=== PATIENT | female | born 1990 | race Caucasian/White ===

== ENCOUNTER 2021-11-27 17:39 | Outpatient (CLI) | payer OTHER, SELFPAY ==
[2021-11-27 21:00] LABS: Hepatitis B Surface Antigen* Negative (Negative)
[2021-11-27 21:10] LABS: HIV 1/2/P24 Combo Screen* Negative (Negative)
[2021-11-27 21:17] LABS: Hepatitis C Virus Antibody* Negative (Negative)
[2021-11-27 21:37] LABS: Chlamydia DNA Amplified* NOT DETECTED (No Detected); GC DNA Amplified* NOT DETECTED (No Detected)
[2021-11-29 20:38] LABS: Rapid Plasma Reagin (RPR) Non Reactive (Non Reactive)
== END 2021-11-27 17:40 | disposition home or self-care (01) ==
PROVIDERS: Visit Provider Physician Assistant
DX: Z34.91 Encounter for supervision of normal pregnancy, unspecified, first trimester (principal); Z3A.11 11 weeks gestation of pregnancy
CPT/HCPCS: 76801; 86592; 86703; 86762; 86787; 86803; 86850; 86900; 86901; 87086; 87340; 87491; 87591

== ENCOUNTER 2021-12-25 17:21 | Outpatient (CLI) | payer OTHER, SELFPAY ==
[2021-12-25 20:51] LABS: Alanine Aminotransferase* 12 U/L (4-35); Aspartate Amino Transferase* 20 U/L (12-35); Creatinine* 0.6 mg/dL (0.5-1.5); Estimated Glomerular Filt Rate 123 ml/min
[2021-12-25 20:52] LABS: Blood Urea Nitrogen* 14 mg/dL (5-24); Uric Acid* 2.9 mg/dL (2.2-8.4)
[2021-12-25 20:53] LABS: Total Protein Urine < 5 mg/dL
== END 2021-12-25 17:22 | disposition home or self-care (01) ==
PROVIDERS: Visit Provider Physician Assistant
DX: Z34.92 Encounter for supervision of normal pregnancy, unspecified, second trimester (principal); Z3A.15 15 weeks gestation of pregnancy
CPT/HCPCS: 82565; 82570; 84156; 84450; 84460; 84520; 84550

== ENCOUNTER 2022-01-22 15:18 | Outpatient (CLI) | payer OTHER, SELFPAY ==
--- NOTE | 2022-01-22 15:30 | CRLHL7_ITS ---
For Patients: As a result of the Century Cures Act, medical imaging exams and procedure reports are released immediately into your electronic medical record. You may view this report before your referring provider. If you have questions, please contact your health care provider. INDICATION: Evaluate anatomy. COMPARISON: None. TECHNIQUE: Real time bower scale imaging of the fetus was performed. FINDINGS: Sonographic imaging demonstrates a single living intrauterine gestation. Fetus demonstrates a regular cardiac rate of 145 beats per minute. Fetus has a vertex orientation and longitudinal lie. The placenta lies posteriorly without evidence of placenta previa. Amniotic fluid volume appears normal. Single deepest vertical pocket: 4.2 cm. The cervix is closed and measures 3.3 cm in length. The composite ultrasound gestational age is calculated at 20 weeks 6 days with an estimated sonographic due date of June 05, 2022. The estimated weight is 402 grams which lies at greater than the 97th percentile. The following biometric measurements were obtained: Biparietal diameter: 5.0 cm/21 weeks 1 day 96% Head circumference: 17.9 cm/20 weeks 2 days 78% Abdominal circumference: 16.2 cm/21 weeks 2 days 91% Femur length: 3.5 cm/21 weeks 1 day 90% The HC/AC ratio measures: 1.1 range (1.06-1.25) On anatomic survey, there is a normal appearance of the cerebral ventricles, cisterna magna and cerebellum. The nose, lips, and facial profile appear normal. The cervical, thoracic and lumbar spine are well visualized and appear normal. There is a normal four-chamber heart view and the left and right ventricular outflow tracts appear normal. diaphragm, stomach, kidneys and bladder appear normal. There is a normal three-vessel cord and cord insertion site. The four extremities appear normal. IMPRESSION: Normal OB ultrasound exam with concordance of clinical and sonographic dating. No intrinsic abnormalities noted on anatomic survey. Dictated by Reymundo Cordero MD @ 01/23/2022 8:46:38 AM (Electronically Signed)
== END 2022-01-22 15:19 | disposition home or self-care (01) ==
LOC: US 15:19
PROVIDERS: Visit Provider Physician Assistant
DX: Z34.92 Encounter for supervision of normal pregnancy, unspecified, second trimester (principal); Z3A.20 20 weeks gestation of pregnancy
CPT/HCPCS: 76805

== ENCOUNTER 2022-03-28 15:09 | Outpatient (CLI) | payer OTHER, SELFPAY ==
[2022-03-31 11:25] LABS: Rapid Plasma Reagin (RPR) Non Reactive (Non Reactive)
== END 2022-03-28 15:10 | disposition home or self-care (01) ==
LOC: NFLDREF 15:09
PROVIDERS: Registered Nurse; Visit Provider Physician Assistant
DX: Z34.93 Encounter for supervision of normal pregnancy, unspecified, third trimester (principal); Z3A.28 28 weeks gestation of pregnancy
CPT/HCPCS: 86592

== ENCOUNTER 2022-04-23 16:54 | Outpatient (CLI) | payer OTHER, SELFPAY ==
--- NOTE | 2022-04-23 17:00 | CRLHL7_ITS ---
For Patients: As a result of the Cures Act, medical imaging exams and procedure reports are released immediately into your electronic medical record. You may view this report before your referring provider. If you have questions, please contact your health care provider. INDICATION: Assess growth. TECHNIQUE: Transabdominal obstetrical ultrasound. COMPARISON: None. FINDINGS: Single living intrauterine in vertex presentation with the spine toward the maternal left side. Posterior placenta. heart rate 137 beats per minute. Normal amniotic fluid. Single deepest pocket measurement of 5.7 cm. Biparietal diameter 8.73 cm, 35 weeks 2 days, 97th percentile. Head circumference 32.29 cm, 36 weeks 3 days, 96th percentile. Abdominal circumference 29.54 cm, 33 weeks 4 days, 77th percentile. Femur length 6.78 cm, 34 weeks 6 days, 90th percentile. Composite calculated ultrasound age 35 weeks 0 days with a sonographic due date of May 28, 2022. This is advanced by at least 2-1/2 weeks when correlated with the age based on the last menstrual period provided. Estimated weight 2414 g which lies at the 98th percentile. The head to abdominal circumference ratio is normal at 1.09. The femur length to abdominal circumference ratio is normal at 22.96. IMPRESSION: Single living intrauterine in vertex presentation. Composite calculated ultrasound age 35 weeks 0 days with a sonographic due date of May 28, 2022. Estimated weight lies at the 90th percentile. Dictated by Reymundo Cordero MD @ 04/24/2022 10:23:21 AM (Electronically Signed)
== END 2022-04-23 16:55 | disposition home or self-care (01) ==
LOC: US 16:55
PROVIDERS: Visit Provider Physician Assistant
DX: Z34.93 Encounter for supervision of normal pregnancy, unspecified, third trimester (principal); Z3A.35 35 weeks gestation of pregnancy
CPT/HCPCS: 76816

== ENCOUNTER 2022-05-20 14:54 | Outpatient (CLI) | payer OTHER, SELFPAY ==
--- NOTE | 2022-05-20 15:00 | CRLHL7_ITS ---
For Patients: As a result of the Century Cures Act, medical imaging exams and procedure reports are released immediately into your electronic medical record. You may view this report before your referring provider. If you have questions, please contact your health care provider. OB ULTRASOUND, 05/20/2022 LYDIA by LMP: 06/14/2022. GA: 36 w, 3 d. Single. INDICATION: Growth. CERVIX: Not visualized. POSITIONING: Vertex. AMNIOTIC FLUID: 6.3 cm. PLACENTA: Technique: Transabdominal. PLACENTA POSITION: Anterior. DOPPLER: heart rate: 137 bpm. Biometry: BPD: 9.4 cm. 38 w, 1 d, 94 percent. HC: 34.9 cm. 40 w, 4 d, 95 percent. AC: 35.5 cm. 39 w, 3 d, >97 percent. FL: 7.7 cm. 39 w, 1 d, 96 percent. FL/AC ratio: 21.6 percent. HC/AC ratio: 0.98. EFW: 3741 g. Weight: 8 lbs, 4 oz. age by this US: 39 w, 2 d. LYDIA by this US: 05/25/2022. Percentile by LYDIA: >97 percent. IMPRESSION: Single live intrauterine gestation at 39 weeks 2 days. LYDIA of 05/25/2022. Sandra Liang M.D. Diagnostic/Breast Radiologist [email or web address] EMERSON/[email or web address]/Dictated by: Sandra Liang MD @ 05/20/2022 4:04:00 PM (Electronically Signed)
== END 2022-05-20 14:55 | disposition home or self-care (01) ==
LOC: US 14:55
PROVIDERS: Visit Provider Physician Assistant
DX: Z34.93 Encounter for supervision of normal pregnancy, unspecified, third trimester (principal); Z3A.36 36 weeks gestation of pregnancy
CPT/HCPCS: 76816; 87081; 87653

== ENCOUNTER 2022-06-03 17:21 | Inpatient (IN) | payer OTHER, SELFPAY ==
[2022-06-03] VITALS (19 sets, daily range): BP systolic 100–133; BP diastolic 61–82; PULSE 53–88; RESP 16; TEMP 36.8–37.3; O2SAT 97–100; BMI 25.6
[2022-06-03 17:08] LABS: Amnisure Rom* POSITIVE
[2022-06-03] MEDS: LACTATED RINGERS 1000 ML 1,000 ML 925 ML IV (17:35)
[2022-06-03 17:39] LABS: Hemoglobin* 9.6 gm/dL (12.0-16.0)
--- NOTE | 2022-06-03 18:06 | W.PM.LDBA ---
Subjective History of Present Illness Time Seen by Provider: 17:30 Date Seen: 06/03/22 Narrative: She is a 32 year old at 38w3d. Patient is being admitted to Labor and Delivery for SROM at around noon today. Amnisure on admission positive. She is having regular contractions q2-3 minutes on toco but patient denies feeling any contractions. Her full history and physical was dictated by Dr. Kline on 05/20/2022. Please see this for details. OB - Problem Based A/P Additional Plan (1) SROM (spontaneous rupture of membranes): Status: Acute (2) Previous delivery affecting : Status: Acute Plan - Patient continues to desire repeat delivery. - CS Consent The patient was consented for section and blood. She understands that the three main categories of risk include bleeding, infection, and damage to surrounding structures. Regarding infection, she understands that we will be delivering appropriate antibiotics, however that the risk of infection following section still is approximately 5%. She understands that though the risk is very low that there is always a risk of damage to the bladder, uterus, ovaries, fallopian tubes, bowels, ureters, or even the fetus. There is an increased risk as she's had abdominal surgery prior. She understands that most injuries can be addressed at the time of surgery, however, such an injury may require additional surgeries to fix. Lastly, she understands that a section carries a risk of bleeding, and that while this bleeding can be addressed with multiple medical and surgical modalities, that there is the possibility of needing a blood transfusion. Unfortanately, her last delivery was complicated by acute blood loss anemia require two units of pRBC. She reports she would accept a blood transfusion understanding the risks of a 1/200,000 risk of Hepatitis and 1/2,000,000 risk of HIV as well as the risk of having an allergic reaction to the blood products. She further understands that this reaction is typically mild, however can be severe including respiratory distress and necessitating ICU-level care. Lastly, she understands that a section does increase risks for future pregnancies and deliveries including, but not limited to, the risk of uterine rupture or placenta accreta. - Hgb 9.6, plt 223 - OR team notified Delivery/Labor/Induction Plan Plan: Section OB Exam Physical Exam Vital signs: Temp Pulse Resp BP Pulse Ox 98.9 F 85 16 117/73 97 06/03/22 16:51 06/03/22 16:51 06/03/22 16:51 06/03/22 16:51 06/03/22 16:52 Narrative: Physical exam: General: Comfortable and in no acute distress Psych: Alert and oriented x3, full affect HEENT: Normocephalic, atraumatic Lungs: Unlabored breathing Neuro: No focal deficit. Mentating appropriately Pelvic exam: 3/50/-3 per RN cervical exam. Will reassess in OR
[2022-06-03] MEDS: CEFAZOLIN 2 GM INJ IVP (18:30)
[2022-06-03 18:31] LABS: Basophils Absolute Auto 0.02 K/uL (0.00-0.30); Basophils Percent Auto 0.3 % (0.0-3.0); Eosinophils Absolute Auto 0.04 K/uL (0.00-0.50); Eosinophils Percent Auto 0.5 % (0.0-7.0); Hematocrit 30.2 % (33.0-51.0); Hemoglobin* 9.6 gm/dL (12.0-16.0); Immature Granulocytes Abs Auto 0.01 K/uL (0.00-0.30); Immature Granulocytes Pct Auto 0.1 %; Lymphocytes Absolute Auto 1.54 K/uL (0.90-2.90); Mean Corpuscular HGB Conc 32 gm/dL (32-36); Mean Corpuscular Hemoglobin 26 pg (26-34); Mean Corpuscular Volume 81 fL (80-100); Monocytes Percent Auto 6.2 % (0.0-11.0); Neutrophils Percent Auto 72.9 % (42.0-72.0); Platelet Count* 252 K/uL (140-440); RDW Coefficient of Variation % 12.5 % (11.5-15.5); Red Blood Count 3.73 m/uL (4.00-5.20); Slide Review Reflex No
[2022-06-03] MEDS: AZITHROMYCIN 500 MG in 0.9 % SODIUM CHLORIDE 250 ml 250 ML 255 MG IVPB (18:35)
[2022-06-03 19:08] LABS: SARS PCR* Negative SARS-CoV-2 (Negative)
--- NOTE | 2022-06-03 19:39 | PM.OBPRCCS ---
Procedure Pre-op/Post-op diagnoses: Pre-Op/Post-Op Diagnoses Operation Date: 06/03/22 19:30 <No data on this case meets the specified criteria> Procedure Done: Global Procedure Details: Procedures Operation Date: 06/03/22 19:30 Actual Procedure Side Surgeon r Section Binta Moy MD Disposition: floor Anesthesia type: Spinal Narrative: DELIVERY BY SECTION Date of Service: 06/03/2022 Delivery time: 1852 Summary: Admitted for repeat delivery at 38 weeks 3 days due to SROM, Repeat Lower uterine transverse section, Pfannenstiel, Closed with sutures, QBL 592 cc, Findings: Dense adhesions of the anterior rectus fascia to the rectus abdominis, minimal adhesions intraabdominally, bladder low and away from previous low uterine segment scar. Normal uterus, bilateral ovaries and tubes Complications: Dense adhesion and uterine atony 8/9 Weight 3945g. Primary Indication: SROM in setting of previous delivery Declined TOLAC and desire repeat delivery Procedures: Repeat Lower uterine transverse section Specimens Removed: Placenta Surgeon: Binta Moy MD Pillowcase Folder Surgeon: None Anesthesia: Spinal and TAP block Report: Prophylactic antibiotic, 2 g of Ancef and 500 mg of azithromycin was given before patient was taken to OR. After arrival to the operating room patient was placed in the supine position with left lateral tilt after administration of spinal anesthesia. Laparotomy A pfannenstiel incision was made through the anterior abdominal wall with #10 scalpel approximately 2 cm above the pubic symphysis. The incision was extended sharply with the #10 scalpel through the subcutaneous tissue to the level of fascia. The fascia was entered sharply with a #10 scalpel (Pfannenstiel) in the midline and extended in semi-elliptical fashion with Hernandez scissor. The underlying muscles were dissected off the overlying fascia by grasping the superior aspect of fascia with two magali clamps and blunt dissection was used along the midline. Lysis of dense adhesion performed and the fascia was further from rectus muscle with Hernandez scissor and/or cautery. In similar fashion, the lower aspect of fascia was also grasped with two Magali clamps and both blunt and sharp dissection was used to separate fascia from rectus muscle. The rectus muscles were in the midline bluntly with mirna and Metzenbaum. The peritoneum was then entered sharply with Metzenbaum. The peritoneal incision was then extended superiorly and inferiorly under direct visualization with care being taken to avoid bladder and bowel with cautery. Filmy intraabdominal adhesions noted. The peritoneal incision was enlarged with bovie to appropriate size. Rex retractor was inserted into the abdomen. Delivery A bladder flap was not developed as the bladder was low and far away from the uterine incision site. A low transverse hysterotomy was made then with #10 scalpel and extended laterally and cephalad with fingers in a low transverse fashion with Manu Chong technique with care being taken to avoid injury to the fetus. The amniotic cavity (membrane) was then entered with spontaneous rupture of membrane, and the amniotic fluid was noted to be clear, fetus was delivered cephalic with the assistance of constant fundal pressure. Nuchal cord x 2 noted with the delivery of the head and this was reduced at the hysterotomy. With delivery of the baby, no extension was noted. Placenta was delivered spontaneously with steady traction on cord and manual separation of placenta from uterine wall. Closure Uterine cavity was cleaned after placental delivery with lap sponge x 2. The hysterotomy was closed in one layer with stitches using 0 vicryl with continuous locking stitches. One figure of eight was placed at the midline of the uterine incision. Hemostasis was achieved as needed with electrocautery. The ovaries/tubes/uterine surface were evaluated. They were found to be normal. Rex retractor was removed. Fascia was closed with running stitches using 0 PDS. Hemostasis was checked for and found to be adequate. The skin was closed with 4-0 Monocryl subcuticular sutures . The incision was cleaned and covered with a Exofin and Mepilex dressing. Sponge, lap and needle counts were correct x 2. Intraoperative Complications: Dense adhesion and uterine atony Uterotonics: 40 u of pitocin, 0.2 mg of Methergine x1, and TXA QBL: 592 cc Disposition: The patient tolerated the procedure well. She was recovered in Obstetric PACU for close monitoring in stable condition, with a contracted uterus and normal transvaginal bleeding. The was sent to mother?s bedside/PACU. The placenta was not sent to pathology. Infant total score - 1 minute: 8 total score - 5 minute: 9
--- NOTE | 2022-06-03 20:06 | W.PM.NB ---
Nerve Block Nerve Block Time Seen by Provider: 19:40 Date Seen: 06/03/22 Type of block requested by surgeon for post-operative analgesia: TAP Side: bilateral Time out performed: Yes Verification of patient name: Yes Verification of date of : Yes Site marking: not applicable Name of person performing procedure: anca Continuous monitoring Was continuous monitoring of O2 sat, B/P, satellite project site monitor, recorded every 15 minutes?: Yes Procedure Checklist: sterile prep, needles and gloves Ultrasound guided. Images saved: Yes Medications given in 5ml increments after negative aspiration: Marcaine %: 0.25 mL: 30 Needle gauge: 20 and Exparel mL: 10 Patient tolerated procedure well: Yes Block Charges Block Charge (with Pro Fee): TAP Bilateral Use of Ultrasound Machine for Block: Yes- US Guidance/pain block
--- NOTE | 2022-06-03 20:08 | W.ANESCHARGE ---
Anesthesia Charges Start Date/Time Anesthesia Start Date: 06/03/22 Anesthesia Start Time: 18:20 Stop Date/Time Anesthesia Stop Date: 06/03/22 Anesthesia Stop Time: 19:52 Summary Emergency: [facility] HELPER
[2022-06-04] VITALS (14 sets, daily range): BP systolic 92–95; BP diastolic 56–61; PULSE 65–88; RESP 16; TEMP 36.4–36.7; O2SAT 97–100
[2022-06-04] MEDS: KETOROLAC 30 MG/ML inj IVP ×4 (01:25→19:45)
[2022-06-04] MEDS: ACETAMINOPHEN 500 MG TABLET 1000 MG PO ×3 (05:25→18:51)
[2022-06-04 07:02] LABS: Hemoglobin* 9.6 gm/dL (12.0-16.0)
--- NOTE | 2022-06-04 11:13 | P.OBPN_ITS ---
OB - PN: A/P Assessment and Plan (1) care and examination immediately after delivery: Status: Acute (2) Status post delivery: Status: Acute (3) Lactating mother: Status: Acute (4) Anemia affecting : Status: Acute Plan day: 1 Plan: routine postop care Comments: Anemia. Continue iron supplementation Lactating mother. May see if desired. Anticipate discharge tomorrow 06/05 or 06/06. OB - PN: Subj Subjective Date Seen: 06/04/22 Patient comments: no complaints, pain well controlled, incisional pain and flatus present Ensign infant status: and doing well Ensign feeding status: exclusively Narrative: Delma is a 32 y.o. at 38 4/ who was admitted to L & D for SROM. ?She had an uncomplicated repeat .?The patient feels well. ?The pain is well controlled with current medications. ?She has no new complaints. ?She is breast feeding and reports things are going well.? the patient has done well.? Vitals have been stable.? She has remained afebrile.? Has a good appetite, is tolerating a general diet. ?She is voiding without difficulty.? She is passing gas and has not had a bowel movement.? She is ambulating and denies any dizziness.? Has scant amount of rubra lochia. ? OB - PN: Obj Exam Physical Exam: Vital signs: Temp Pulse Resp BP Pulse Ox O2 Del Method 97.6 F 68 16 95/60 100 Room Air 06/04/22 08:00 06/04/22 08:00 06/04/22 08:05 06/04/22 08:00 06/04/22 08:00 06/04/22 08:00 Narrative: GENERAL APPEARANCE:? normal affect, alert, no distress MOOD:? appropriate CHEST:? clear to auscultation HEART:? regular rate and rhythm ABDOMEN:? soft, non-tender the uterine fundus is At Umbilicus, Midline and is appropriate for the stage of recovery. PERINEUM:? lochia is scant EXTREMITIES:? normal and no edema Incision: Dressing in place, clean, dry and intact. Urinary Catheter Management: Urethral: Cath placed during this visit: yes Urethral indwelling: No Reason for continuing: measure accurate output Insertion date: 06/03/22 Insertion time: 18:38 OB - PN: Obj Data Labs Labs: Laboratory Results - last 24 hr 06/03/22 06/03/22 06/03/22 16:55 17:25 17:30 WBC 7.70 RBC 3.73 L Hgb 9.6 L Hct MCV MCH MCHC RDW Coeff of Chirag Plt Count Neut % (Auto) Lymph % (Auto) [place] % (Auto) Eos % (Auto) Baso % (Auto) Neut # (Auto) Lymph # (Auto) [place] # (Auto) Eos # (Auto) Baso # (Auto) Membrane Rupture POSITIVE SARS-CoV-2 (PCR) Negative SARS-CoV-2 Blood Type Antibody Screen 06/03/22 06/04/22 17:30 06:42 WBC RBC Hgb 9.6 L 9.6 L Hct 30.2 L MCV 81 MCH 26 MCHC 32 RDW Coeff of Chirag 12.5 Plt Count 252 Neut % (Auto) 72.9 H Lymph % (Auto) 20.0 [place] % (Auto) 6.2 Eos % (Auto) 0.5 Baso % (Auto) 0.3 Neut # (Auto) 5.60 Lymph # (Auto) 1.54 [place] # (Auto) 0.50 Eos # (Auto) 0.04 Baso # (Auto) 0.02 Membrane Rupture SARS-CoV-2 (PCR) Blood Type A Positive Antibody Screen NEGATIVE
[2022-06-04] MEDS: DOCUSATE SODIUM 100 MG CAPSULE PO (15:55)
[2022-06-05 01:40] VITALS: BP 108/72; PULSE 72; RESP 16; TEMP 36.5; O2SAT 99
[2022-06-05] MEDS: KETOROLAC 30 MG/ML inj IVP (01:40)
[2022-06-05] MEDS: ACETAMINOPHEN 500 MG TABLET 1000 MG PO ×2 (06:19→12:13)
[2022-06-05] MEDS: OXYCODONE 5 MG TABLET PO ×2 (06:24→12:13)
[2022-06-05] MEDS: DOCUSATE SODIUM 100 MG CAPSULE PO (07:26)
[2022-06-05] MEDS: IBUPROFEN 600 MG TABLET PO (07:26)
--- NOTE | 2022-06-05 08:18 | P.DS_ITS ---
DS: Providers Provider Date Seen: 06/05/22 Date of admission: 06/03/22 17:21 Primary care physician: Not a Local Provider Admitting Clinician: Binta Moy MD Attending Physician on discharge: Binta Moy MD Date of Discharge: 06/05/22 DS: Diagnosis Discharge Diagnosis (1) care following delivery: Status: Acute (2) Lactating mother: Status: Acute Exam Narrative: Exam Narrative: GENERAL APPEARANCE:? normal affect, alert, no distress? MOOD:? appropriate? CHEST:? clear to auscultation and percussion? HEART:? regular rate and rhythm? ABDOMEN:? soft, non-tender the uterine fundus is 2 cm Below Umbilicus, Midline and is appropriate for the stage of recovery. Incision well approximated without edema, redness, warmth, or drainage. Glue closure intact.? EXTREMITIES:? normal and no edema? Patient has no complaints? No active bleeding?? Doing well? She is requesting discharge home.? Const: Vital Signs, click to edit/add: Vital Signs - 24 hr 06/04/22 13:55 06/04/22 14:05 06/04/22 15:58 Temperature 98.1 F 97.7 F Pulse Rate [Left B lood Pressure Cuff ] 68 88 Respiratory Rate 16 16 16 Blood Pressure [Le ft Arm] 92/61 93/60 Pulse Oximetry 97 98 Oxygen Delivery Me thod Room Air Room Air 06/04/22 20:10 06/05/22 01:40 Temperature 98.0 F 97.7 F Pulse Rate [Left B lood Pressure Cuff ] 84 72 Respiratory Rate 16 16 Blood Pressure [Le ft Arm] 92/56 L 108/72 Pulse Oximetry 97 99 Oxygen Delivery Me thod Room Air Room Air OB - DS: Summary Hospital Course Hospital Course: The patient is a 32 year old, G 2 now P 2? admitted on 06/03/22 at 38 Weeks, 3 Days gestation for scheduled repeat section.? She had an uncomplicated delivery.? She delivered a viable male .? She is breast feeding and reports things are well.? the patient has done well.? Her pain is well controlled with current medications.? She has no new complaints.? Vitals have been stable. She has remained afebrile. She is voiding without difficulty. She is passing gas and has not had a bowel movement. She is ambulating and denies any dizziness. She is planning IUD for control.?Her hemoglobin remained 9.6?throughout her hospitalization and was low in . Denies fatigue, lightheadedness or dizziness. She will plan to continue to take PO iron supplementation. Peripartum Data Procedures: Procedures Operation Date: 06/03/22 19:30 Actual Procedure Side Surgeon p Section Binta Moy MD complications: none Infant Gender: Male Infant Discharge Plan: Home Status at Discharge Functional status at discharge: independent ambulation Overall status at discharge: patient is progressing back to baseline Time Spent with Patient Time attestation: Total time spent providing and/or coordinating discharge services: Discharge Plan Discharge Disposition: Home, Self-Care Date of Admission: 06/03/22 17:21 Primary Care Provider: Provider,Not a Local Condition: Stable Anticipated Discharge Date/Time: 06/05/22 10:00 Discharge Medications: New docusate sodium 100 mg Capsule 100 mg PO DAILY Qty: 90 0RF ibuprofen 600 mg Tablet 600 mg PO Q6H PRN (Reason: Pain) Qty: 60 0RF oxycodone 5 mg Tablet 5 - 10 mg PO Q4H PRN (Reason: Pain) Qty: 10 0RF ferrous sulfate 325 mg (65 mg iron) tablet,delayed release (DR/EC) 325 mg PO QDAY Qty: 90 2RF Continued DHA 200 mg capsule 50 mg PO DAILY sertraline [Zoloft] 50 mg tablet 50 mg PO QDAY Qty: 90 1RF No Action aspirin 81 mg tablet,chewable 81 mg PO QDAY Discharge Orders: Discharge Order (Routine); Ordered 06/05/22 Ordered By: Delphine Pascal Patient Education: OB Over the Counter Medication Information, OB /Breast Feeding Additional Instructions: Discharge instructions were reviewed with the patient including signs and symptoms of infection and home going medications? ?? Activity restrictions:? Lifting Restrictions: 20 pounds for 6 weeks? No high-impact or core exercises for 6 weeks.?? No not submerge incision under water X 2 weeks?? Nothing vaginally for 6 weeks: no tampons or intercourse? Do not drive while taking narcotic pain medication(s)? Off Work or School for 8 weeks? ?? Symptoms to report to doctor:? -Bleeding that saturates more than one pad per hour? -Passing clots larger than the size of a golf ball? -Pain not relieved by prescribed medication? -Fever above 100.4 degrees Fahrenheit? -A foul vaginal odor? -Difficulty in emotions, mood and functions? -Thoughts of hurting yourself and/or ? -Painful, reddened area in your breast? -Any drainage, redness or tenderness in your IV/epidural site? -Severe headache that doesn't improve after taking medications? -Changes in vision, including temporary loss of vision, blurred vision, and/or light sensitivity? -Upper abdominal pain (usually under ribs on the right side)? -Decrease in urination or painful, frequent urinating? -Chest pain? -Shortness of breath? -Tenderness or pain with redness and/swelling in the calf(s) of your leg? Follow up visits:?? 1. 1 week visit:? incision check.? 2. 2-week visit: discuss infant feeding/care concerns, review control options and screen for anxiety/depression.? 3. 6-week visit for an annual exam.? ?? consultation services are available to all mothers and babies for the first year after delivery.? To make an appointment, please call [phone].? Follow Up Appointments: [facility] [Provider Group] Provider,Not a Local [Primary Care Provider] - Forms: [facility] Info Instructions
[2022-06-05 08:50] VITALS: BP 100/59; PULSE 65; RESP 18; TEMP 36.4; O2SAT 100
== END 2022-06-05 13:30 | disposition home or self-care (01) | DRG 788 ==
LOC: OB OUT 17:22 → OB 17:22
PROVIDERS: Admitting Provider Obstetrics & Gynecology; Visit Provider Obstetrics & Gynecology
PROC: 10D00Z1 Extraction of Products of Conception, Low, Open Approach (ICD-10-PCS; CPT 59514; principal; 2022-06-03 19:15)
DX: O34.211 Maternal care for low transverse scar from previous cesarean delivery (principal); O99.02 Anemia complicating childbirth; D64.9 Anemia, unspecified; O62.2 Other uterine inertia; Z3A.38 38 weeks gestation of pregnancy; Z37.0 Single live birth
CPT/HCPCS: 01961; 36415; 76942; 84112; 85018; 85025; 86850; 86900; 86901; 87635; 99140; A9270; C9290; J0456; J0690; J1100; J1885; J2210; J2274; J2370; J2405; J2590; J3490; J7050; J7120

== ENCOUNTER 2025-02-21 08:36 | Outpatient (CLI) | payer OTHER, SELFPAY ==
--- NOTE | 2025-02-21 08:45 | CRLHL7_ITS ---
For Patients: As a result of the Cures Act, medical imaging exams and procedure reports are released immediately into your electronic medical record. You may view this report before your referring provider. If you have questions, please contact your health care provider. BILATERAL DIAGNOSTIC MAMMOGRAM WITH COMPUTER-AIDED DETECTION AND TOMOSYNTHESIS RIGHT BREAST ULTRASOUND CLINICAL HISTORY: RIGHT breast lump. COMPARISON: None. TECHNIQUE: Digital BILATERAL mammogram in four projections with computer-aided detection. Tomosynthesis was used in this interpretation. Real-time ultrasound imaging of RIGHT breast with imaging documentation. BREAST COMPOSITION: The breasts are heterogeneously dense, which may obscure small masses. FINDINGS: 3D CC/MLO BILATERAL mammogram images submitted. Normal fibroglandular tissue without architectural distortion or suspicious mass. No suspicious calcifications or adenopathy. Targeted RIGHT breast ultrasound performed at 10 o`clock, 8 cm from the nipple. Normal dense fibroglandular tissue is present. No fibrocystic change or mass. IMPRESSION: No evidence of malignancy. RECOMMENDATIONS: Age-appropriate screening mammography. A lay language report of this examination will be provided to the patient. BI-RADS Category 2: Benign Dictated by Molina Gerard MD @ 02/21/2025 9:26:39 AM /sp SP/Dictated by: Molina Gerard MD @ 02/21/2025 9:26:00 AM (Electronically Signed)
--- NOTE | 2025-02-21 09:15 | CRLHL7_ITS ---
For Patients: As a result of the Century Cures Act, medical imaging exams and procedure reports are released immediately into your electronic medical record. You may view this report before your referring provider. If you have questions, please contact your health care provider. PLEASE SEE BILATERAL BREAST DIAGNOSTIC MAMMOGRAM PERFORMED SAME DAY. CRL:sp 02/21/2025 SP/Dictated by: Molina Gerard MD @ 02/21/2025 9:33:00 AM (Electronically Signed)
== END 2025-02-21 08:37 | disposition home or self-care (01) ==
LOC: MAMMO 08:36
PROVIDERS: Visit Provider Family Medicine
DX: N63.10 Unspecified lump in the right breast, unspecified quadrant (principal); R92.333 Mammographic heterogeneous density, bilateral breasts
CPT/HCPCS: 76642; 77066; G0279

== ENCOUNTER 2025-02-23 14:20 | Outpatient (CLI) | payer OTHER, SELFPAY ==
[2025-02-25 23:44] LABS: HPV Source Cervix
[2025-03-01 10:11] LABS: Pap Test Digital Imaging Done
== END 2025-02-23 14:21 | disposition home or self-care (01) ==
PROVIDERS: Visit Provider Registered Nurse
DX: Z12.4 Encounter for screening for malignant neoplasm of cervix (principal)
CPT/HCPCS: 87624; 87625; 88141; 88142; 88175